=== PATIENT | male | born 1975 | race African-American/Black ===

== ENCOUNTER 2020-02-21 07:56 | Emergency (ER) | payer SELFPAY | END 2020-02-21 09:16 | disposition home or self-care (01) | LOC: ERS 07:56 | DX: F41.9 Anxiety disorder, unspecified (principal); F17.210 Nicotine dependence, cigarettes, uncomplicated | CPT/HCPCS: 93005; 94760 ==

== ENCOUNTER 2020-04-18 12:19 | Emergency (ER) | payer SELFPAY ==
[2020-04-18] MEDS ORDERED: Ketorolac Tromethamine 30 MG/ML VIAL ONE (13:21)
== END 2020-04-18 15:33 | disposition home or self-care (01) ==
LOC: ERS 12:19
DX: M54.5 Low back pain (principal); F41.9 Anxiety disorder, unspecified; F17.210 Nicotine dependence, cigarettes, uncomplicated
CPT/HCPCS: 96372; 99283; J1885

== ENCOUNTER 2021-01-31 10:36 | Emergency (ER) | payer SELFPAY | END 2021-01-31 14:37 | disposition home or self-care (01) | LOC: ERS 10:36 | DX: G89.29 Other chronic pain (principal); M79.604 Pain in right leg; M79.605 Pain in left leg | CPT/HCPCS: 99281 ==

== ENCOUNTER 2021-04-15 08:51 | Emergency (ER) | payer SELFPAY | END 2021-04-15 10:05 | disposition home or self-care (01) | LOC: ERS 08:51 | DX: R00.2 Palpitations (principal); Z87.891 Personal history of nicotine dependence | CPT/HCPCS: 93005; 99285 ==

== ENCOUNTER 2023-02-27 10:37 | Emergency (ER) | payer SELFPAY ==
[2023-02-27] MEDS ORDERED: HYDROcodone/Acetaminophen 10/325 mg Tablet ONE (11:04)
[2023-02-27] MEDS ORDERED: predniSONE 20 MG TAB ONE (11:05)
[2023-02-27] MEDS ORDERED: Ibuprofen 200 MG TAB ONE (11:05)
== END 2023-02-27 12:00 | disposition home or self-care (01) ==
LOC: ERS 10:37
DX: M54.50 Low back pain, unspecified (principal); I10 Essential (primary) hypertension; Z87.891 Personal history of nicotine dependence
CPT/HCPCS: 99283; J7512

== ENCOUNTER 2023-09-22 15:22 | Emergency (ER) | payer SELFPAY ==
[2023-09-22 16:06] LABS: #Basophils 0.1 thou/uL (0.0-0.2); #Neutrophils 7.6 thou/uL (1.40-6.50); %Basophils 0.5 % (0.0-1.0); %Eosinophils 0.3 % (0.0-10.0); %Lymphocytes 13.4 % (21.0-51.0); %Monocytes 10.2 % (0.0-10.0); %Neutrophils 75.3 % (42.0-75.0); Hematocrit 42.5 % (42.0-52.0); Hemoglobin 14.5 g/dL (14.0-18.0); Mean Corpuscular HGB CONC 34.1 g/dL (32.0-36.0); Mean Corpuscular Hemoglobin 30.5 pg (27.0-31.0); Mean Corpuscular Volume 89.5 fl (78.0-98.0); Mean Platelet Volume 9.1 fL (7.4-10.4); Platelet Count 237 10x3/uL (130-400); RBC Distribution Width 13.9 % (11.5-14.5); Red Blood Cell (RBC) Count 4.75 mill/uL (4.70-6.10)
[2023-09-22 16:38] LABS: ALT (SGPT) 15 U/L (8-55); AST (SGOT) 18 U/L (5-34); Anion Gap 12 mmol/L (10-20); BUN (Urea Nitrogen) 4 mg/dL (8.9-20.6); Bilirubin, Total 0.4 mg/dL (0.2-1.2); Calc. Creatinine Clearance 0 mL/min (70-130); Calcium 9.6 mg/dL (7.8-10.44); Carbon Dioxide 24 mmol/L (22-29); Chloride 102 mmol/L (98-107); Estimated GFR 98; Globulin 2.6 g/dL (2.4-3.5); Glucose 114 mg/dL (70-105); Potassium 4.2 mmol/L (3.5-5.1); Protein, Total 6.6 g/dL (6.0-8.3); Sodium 134 mmol/L (136-145)
[2023-09-22 16:42] LABS: CRP (Inflammatory) 8.89 mg/dL (= or < 0.5)
[2023-09-22] MEDS ORDERED: Azithromycin 500 MG VIAL ONE (16:42)
[2023-09-22] MEDS ORDERED: Sodium Chloride 0.9% 250 ML 250 ML ONE ×2 (16:42→16:43)
[2023-09-22] MEDS ORDERED: cefTRIAXone (ROCEPHIN) 2 GM VIAL ONE (16:42)
[2023-09-22] MEDS ORDERED: Ketorolac Tromethamine 30 MG (1 mL) VIAL ONE (16:42)
[2023-09-22] MEDS ORDERED: Sodium Chloride 0.9% 100 ML ONE (16:44)
[2023-09-22 16:48] LABS: Alkaline Phosphatase 62 U/L (40-110)
[2023-09-22] MEDS ORDERED: Acetaminophen 500 MG TAB ONE (17:20)
[2023-09-22 17:21] LABS: SARS-CoV-2 NAA Rapid Test Not Detected (NotDetected)
[2023-09-22 17:33] LABS: Bacteria/HPF None Seen HPF (None Seen); Bilirubin Negative (Negative); Blood, Urine Negative (Negative); CAUTI Indications for Culture Alt mental st,lethar; Clarity Clear (Clear); Glucose, Urine (Dipstick) Normal (Negative); Ketone, Urine 10 mg/dL (Negative); Leukocyte Negative Leu/uL (Negative); Nitrite Negative (Negative); Protein, Urine (Dipstick) Negative (Neg-Trace); RBC/HPF 0-3 HPF (0-3); Squamous Epithelial None Seen HPF (0-3); WBC/HPF 0-3 HPF (0-3); pH, Urine 5.5 (5.0-9.0)
[2023-09-22 17:34] LABS: Urine Culture Reflex No No
== END 2023-09-22 18:33 | disposition home or self-care (01) ==
LOC: ERS 15:22
DX: J18.9 Pneumonia, unspecified organism (principal); R11.10 Vomiting, unspecified; I10 Essential (primary) hypertension; Z87.891 Personal history of nicotine dependence
CPT/HCPCS: 36415; 71045; 80053; 81001; 83605; 83690; 85025; 86140; 87040; 93005; 96365; 96368; 96375; J0456; J0696; J1885; J3490; J7050

== ENCOUNTER 2024-03-20 10:49 | Emergency (ER) | payer SELFPAY ==
[2024-03-20] MEDS ORDERED: Acetaminophen 500 MG TAB ONE (11:43)
[2024-03-20] MEDS ORDERED: Ketorolac Tromethamine 30 MG (1 mL) VIAL ONE (11:43)
[2024-03-20] MEDS ORDERED: Lidocaine 1% PF 5 ML VIAL ONE (12:05)
== END 2024-03-20 13:01 | disposition home or self-care (01) ==
LOC: ERS 10:49
DX: S62.326A Displaced fracture of shaft of fifth metacarpal bone, right hand, initial encounter for closed fracture (principal); I10 Essential (primary) hypertension; F17.290 Nicotine dependence, other tobacco product, uncomplicated; Y04.2XXA Assault by strike against or bumped into by another person, initial encounter; Y93.89 Activity, other specified
CPT/HCPCS: 26605; 96372; J1885

== ENCOUNTER 2024-08-02 13:02 | Observation (INO) | payer SELFPAY ==
[~2024-08-02 13:02] MED LIST: Iopamidol-370 76% 500 ML MDV (1 ML CHARGE) ONE
[2024-08-02] MEDS ORDERED: Aspirin 81 mg Enteric Coated Tablet ONE (13:58)
[2024-08-02 14:04] LABS: Bacteria/HPF None Seen HPF (None Seen); Bilirubin Negative (Negative); Blood, Urine Negative (Negative); CAUTI Indications for Culture Alt mental st,lethar; Clarity Turbid (Clear); Glucose, Urine (Dipstick) Normal (Negative); Ketone, Urine Negative (Negative); Leukocyte Negative Leu/uL (Negative); Nitrite Negative (Negative); Protein, Urine (Dipstick) Negative (Neg-Trace); RBC/HPF 0-3 HPF (0-3); Specific Gravity, Urine 1.018 (1.002-1.036); Squamous Epithelial None Seen HPF (0-3); Urobilinogen Normal mg/dL (Less than 2); WBC/HPF 0-3 HPF (0-3); pH, Urine 7.5 (5.0-9.0)
[2024-08-02 14:05] LABS: Urine Culture Reflex No No
[2024-08-02 14:11] LABS: #Basophils 0.04 10x3/uL (0.0-0.2); %Basophils 0.5 % (0.0-1.0); %Eosinophils 1.1 % (0.0-10.0); %Lymphocytes 29.2 % (21.0-51.0); %Monocytes 7.8 % (0.0-10.0); Hematocrit 42.5 % (42.0-52.0); Hemoglobin 14.8 g/dL (14.0-18.0); Mean Corpuscular HGB CONC 34.8 g/dL (32.0-36.0); Mean Corpuscular Hemoglobin 30.8 pg (27.0-31.0); Mean Corpuscular Volume 88.4 fL (78.0-98.0); Mean Platelet Volume 9.2 fL (7.4-10.4); Platelet Count 241 10x3/uL (130-400); RBC Distribution Width 14.2 % (11.5-14.5); Red Blood Cell (RBC) Count 4.81 mill/uL (4.70-6.10)
[2024-08-02 14:12] LABS: Amphetamine Not Detected (NotDetected); Barbiturates Screen Not Detected (NotDetected); Benzodiazepine Screen Not Detected (NotDetected); Cocaine Metabolite Screen Not Detected (NotDetected); Methadone Not Detected (NotDetected); Methamphetamine Not Detected (NotDetected); Opiate Screen Not Detected (NotDetected); Oxycodone Screen Not Detected (NotDetected); Phencyclidine (PCP) Not Detected (NotDetected); THC/Cannabinoid Screen Detected (NotDetected); Tricyclic Screen Not Detected (NotDetected)
[2024-08-02 14:32] LABS: Lipase 25 U/L (8-78)
[2024-08-02 14:34] LABS: ALT (SGPT) 19 U/L (8-55); AST (SGOT) 23 U/L (5-34); Acetaminophen Less than 10 mcg/mL (Less than 10); Albumin 3.9 g/dL (3.5-5.0); Alcohol Less than 10.0 mg/dL (Less than 10); Alkaline Phosphatase 56 U/L (40-110); Anion Gap 11 mmol/L (10-20); BUN (Urea Nitrogen) 8 mg/dL (8.9-20.6); Bilirubin, Total 0.5 mg/dL (0.2-1.2); CK (CPK) 138 U/L (30-200); Calc. Creatinine Clearance 0 mL/min (70-130); Calcium 9.8 mg/dL (7.8-10.44); Carbon Dioxide 24 mmol/L (22-29); Chloride 109 mmol/L (98-107); Estimated GFR 112; Globulin 2.7 g/dL (2.4-3.5); Glucose 92 mg/dL (70-105); Potassium 4.2 mmol/L (3.5-5.1); Protein, Total 6.6 g/dL (6.0-8.3); Salicylate Less than 8.0 mg/dL (Less than 8.0); Sodium 140 mmol/L (136-145)
[2024-08-02 14:36] LABS: Troponin I Less than 0.010 ng/mL (< 0.028)
[2024-08-02] MEDS ORDERED: Acetaminophen 650 MG Suppository PR PRN (15:04)
[2024-08-02] MEDS ORDERED: Calcium Carbonate 500 MG ChewTAB PO PRN (15:04)
[2024-08-02] MEDS ORDERED: Senokot S 8.6-50 MG TAB PO PRN (15:04)
[2024-08-02] MEDS ORDERED: Ondansetron ODT 8 MG TAB SL PRN (17:16)
[2024-08-02 19:24] LABS: Troponin I Less than 0.010 ng/mL (< 0.028)
[2024-08-02 20:53] VITALS: BMI 24.7
[2024-08-02] MEDS: Meclizine HCl 25 MG TAB PO PRN (21:46)
[2024-08-02] MEDS: Atorvastatin Calcium 40 MG TAB PO SCH (21:46)
[2024-08-02] MEDS: Acetaminophen 325 MG TAB PO PRN (21:46)
[2024-08-02] MEDS: Nicotine 14 MG PATCH TD SCH (21:57)
[2024-08-02 22:21] LABS: Troponin I Less than 0.010 ng/mL (< 0.028)
[2024-08-03 04:14] LABS: #Basophils 0.05 10x3/uL (0.0-0.2); %Basophils 0.7 % (0.0-1.0); %Eosinophils 2.2 % (0.0-10.0); %Lymphocytes 39.2 % (21.0-51.0); %Monocytes 8.5 % (0.0-10.0); %Neutrophils 49.3 % (42.0-75.0); Hematocrit 42.6 % (42.0-52.0); Hemoglobin 14.8 g/dL (14.0-18.0); Mean Corpuscular HGB CONC 34.7 g/dL (32.0-36.0); Mean Corpuscular Hemoglobin 30.4 pg (27.0-31.0); Mean Corpuscular Volume 87.5 fL (78.0-98.0); Mean Platelet Volume 9.2 fL (7.4-10.4); Platelet Count 245 10x3/uL (130-400); RBC Distribution Width 14.4 % (11.5-14.5); Red Blood Cell (RBC) Count 4.87 mill/uL (4.70-6.10)
[2024-08-03 04:32] LABS: Hemoglobin A1c 5.4 % (4.0-6.0)
[2024-08-03 05:51] LABS: Anion Gap 10 mmol/L (10-20); BUN (Urea Nitrogen) 6 mg/dL (8.9-20.6); Calc. Creatinine Clearance 115 mL/min (70-130); Calcium 9.7 mg/dL (7.6-10.4); Carbon Dioxide 25 mmol/L (22-29); Chloride 110 mmol/L (98-107); Cholesterol 154 mg/dL (< 200 Desired); Estimated GFR 112; Glucose 94 mg/dL (70-105); Potassium 4.2 mmol/L (3.5-5.1); Sodium 141 mmol/L (136-145)
[2024-08-03 05:52] LABS: HDL Cholesterol 78 mg/dL (>60 Neg Risk); LDL Cholesterol, Calculated 62 mg/dL; Triglycerides 68 mg/dL (Less than 150)
[2024-08-03] MEDS: Aspirin 81 mg Enteric Coated Tablet PO SCH (08:36)
[2024-08-03 12:29] VITALS: BMI 24.7
[2024-08-03 13:16] VITALS: BP 149/85; TEMP 97.4
== END 2024-08-03 16:27 | disposition home or self-care (01) ==
LOC: ERS 13:02 → ERHOLD 15:07 → 2SE 20:25
PROVIDERS: ADMIT Internal Medicine; ATTEND Internal Medicine
PROC: B24BZZZ Ultrasonography of Heart with Aorta (ICD-10-PCS; principal; 2024-08-03)
DX: I63.9 Cerebral infarction, unspecified (principal); R29.701 NIHSS score 1; I10 Essential (primary) hypertension; F17.290 Nicotine dependence, other tobacco product, uncomplicated; F12.10 Cannabis abuse, uncomplicated; Z79.82 Long term (current) use of aspirin; Z79.899 Other long term (current) drug therapy
CPT/HCPCS: 36415; 36416; 70450; 70496; 70498; 70551; 71045; 80048; 80053; 80061; 80306; 80307; 81001; 82550; 83036; 83690; 84443; 84484; 85025; 93005; 93306; G0378; Q9967